=== PATIENT | male | born 1955 | race Caucasian/White ===

== ENCOUNTER 2019-10-14 08:20 | Outpatient (CLI) | payer MEDICARE, OTHER ==
[2019-10-15 14:40] LABS: #Basophils 0.1 thou/uL (0.0-0.2); #Eosinphils 0.1 thou/uL (0.0-0.7); #Lymphocytes 1.6 thou/uL (1.20-3.40); #Monocytes 0.3 thou/uL (0.11-0.59); #Neutrophils 1.3 thou/uL (1.40-6.50); %Basophils 1.6 % (0.0-1.0); %Lymphocytes 47.4 % (21.0-51.0); %Monocytes 9.9 % (0.0-10.0); Hemoglobin 16.7 g/dL (14.0-18.0); Mean Corpuscular HGB CONC 32.5 g/dL (32.0-36.0); Mean Corpuscular Hemoglobin 31.9 pg (27.0-31.0); Mean Corpuscular Volume 98.1 fL (78.0-98.0); Mean Platelet Volume 8.5 fL (7.4-10.4); Platelet Count 159 thou/uL (130-400); RBC Distribution Width 11.2 % (11.5-14.5); Red Blood Cell (RBC) Count 5.23 mill/uL (4.70-6.10); White Blood Cell (WBC) Count 3.5 thou/uL (4.8-10.8)
[2019-10-15 15:50] LABS: Anion Gap 13 mmol/L (10-20); BUN (Urea Nitrogen) 10 mg/dL (8.4-25.7); Calc. Creatinine Clearance 0 mL/min (70-130); Calcium 8.6 mg/dL (7.8-10.44); Carbon Dioxide 30 mmol/L (23-31); Chloride 101 mmol/L (98-107); Estimated GFR-MDRD 88; Glucose 84 mg/dL (80-115); Potassium 4.4 mmol/L (3.5-5.1); Sodium 140 mmol/L (136-145)
[2019-10-16 12:29] LABS: SARS-CoV-2 MS2 Positive; SARS-CoV-2 N Gene Negative; SARS-CoV-2 S Gene Negative; SARS-CoV-2 by NAA Not Detected (NotDetected); SARS-CoV-2 orf1ab Negative
== END 2019-10-14 08:21 | disposition home or self-care (01) ==
LOC: LABBT 08:20
PROVIDERS: ATTEND Urology
DX: Z01.812 Encounter for preprocedural laboratory examination (principal); Z20.828 Contact with and (suspected) exposure to other viral communicable diseases; N20.0 Calculus of kidney
CPT/HCPCS: 80048; 85025; 87086; U0003; 87635; 93005; 93010

== ENCOUNTER 2019-10-19 08:58 | Day surgery (SDC) | payer MEDICARE ==
[2019-10-14 10:29] VITALS: BMI 26.6
[2019-10-19] MEDS ORDERED: Levofloxacin 500 mg/D5W 100 ml Premix Bag ONE (09:45)
[2019-10-19] MEDS ORDERED: Ondansetron PF 4 MG/2 ML Vial ONE (10:08)
[2019-10-19] MEDS ORDERED: PROPOFOL 200 MG/20 ML VIAL ONE (10:08)
[2019-10-19] MEDS ORDERED: Lidocaine 1% PF 5 ML VIAL ONE (10:08)
[2019-10-19] MEDS ORDERED: EPHEDRINE 25 MG/5 ML SYRINGE ONE (10:08)
[2019-10-19] MEDS ORDERED: Ketorolac Tromethamine 30 MG/ML VIAL ONE ×2 (10:08→13:26)
[2019-10-19] MEDS ORDERED: Dexamethasone 20 MG/5 ML VIAL ONE (10:08)
[2019-10-19 11:50] LABS: Bacteria/HPF None Seen HPF (None Seen); Bilirubin Negative (Negative); Blood, Urine Negative (Negative); Clarity Clear (Clear); Glucose, Urine (Dipstick) Normal (Negative); Ketone, Urine Negative (Negative); Leukocyte Negative Leu/uL (Negative); Nitrite Negative (Negative); Protein, Urine (Dipstick) Negative (Neg-Trace); RBC/HPF 0-3 HPF (0-3); Specific Gravity, Urine 1.007 (1.002-1.036); Squamous Epithelial None Seen HPF (0-3); Urobilinogen Normal mg/dL (Less than 2); WBC/HPF 0-3 HPF (0-3)
[2019-10-19] MEDS ORDERED: Iothalamate Meglumine 60% 50 ML VIAL FS ONE (11:50)
[2019-10-19] MEDS ORDERED: Fentanyl 100 MCG/2 ML VIAL ONE (11:54)
--- NOTE | 2019-10-19 13:02 | RAD ---
EXAM: Retrograde IVP HISTORY: Right kidney stones COMPARISON: CT 10/04/2019 FINDINGS/IMPRESSION: Limited intraoperative fluoroscopic views of the retrograde IVP were submitted f or interpretation. There is a right-sided ureteral stent which appears in good position. The calcifications seen on CT are not obviously visualized. There is mild right hydronephrosis.
[2019-10-19] MEDS ORDERED: Oxybutynin 5 MG TAB ONE (13:26)
[2019-10-19] MEDS ORDERED: HYDROcodone/Acetaminophen 5/325 mg Tablet ONE (13:27)
--- NOTE | 2019-10-19 17:19 | OP ---
DATE OF PROCEDURE: 10/19/2019 POSTOPERATIVE DIAGNOSES: 1. Right renal stones. 2. Possible left ureteral stone. POSTOPERATIVE DIAGNOSIS: Right renal stones. PROCEDURES PERFORMED: 1. Left ureteroscopy with retrograde pyelogram. 2. Right ureteroscopy with laser lithotripsy. 3. Basket extraction of stone. 4. Retrograde pyelogram. 5. 6 x 26 double-J ureteral stent placement. 6. Intraoperative interpretation of radiologic imaging. ANESTHESIA: General. COMPLICATIONS: None. ESTIMATED BLOOD LOSS: None. SPECIMENS: Right renal stone fragments. DESCRIPTION OF PROCEDURE: After informed consent, the patient was taken to the operating room, transferred to the table on his own power. Anesthesia was established. A time-out was performed, showing the correct patient, site, and procedure. Preoperative antibiotics were administered. He was prepped and draped in the lithotomy position. The rigid ureteroscope was advanced through the urethra, noting normal course and caliber of the urethra into the bladder. The left ureteral orifice was cannulated with a wire and the scope passed alongside the wire into the distal ureter. No stone was seen at this point, and so the scope was passed into the mid to proximal ureter with identifying any stones or abnormalities. A retrograde pyelogram was performed, showing good filling of the proximal ureter and renal pelvis without filling defects. The scope was then withdrawn and a wire placed into the right ureter, which was passed up to the level of the right renal pelvis. On scientific writer imaging, the large stone and smaller stone are both easily identified. I then passed access sheath over the wire into the proximal right ureter under fluoroscopic guidance. A retrograde pyelogram was performed through this, showing good filling of the proximal ureter and renal pelvis without filling defect. The flexible ureteroscope was then passed through this into the renal pelvis. These stones were treated with the 273 micron laser fiber into small pieces. A 1.9 cm Nitinol basket was used to retrieve all clinically significant stone fragments. The renal pelvis was then re-examined, noting no clinically significant stone fragments. The pelvis was filled with contrast and then the scope and access sheath withdrawn, leaving the wire in place. A 6 x 26 double-J ureteral stent was passed over the wire with a curl in the kidney and curl in the bladder under fluoroscopic guidance. The patient was then awoken from anesthesia, transferred back to his hospital bed, and taken to PACU in stable condition, where he will be discharged home upon recovery. Job ID: [id number]
== END 2019-10-19 14:38 | disposition home or self-care (01) ==
LOC: SDC 08:58
PROVIDERS: ATTEND Urology
PROC: 0TC38ZZ Extirpation of Matter from Right Kidney Pelvis, Via Natural or Artificial Opening Endoscopic (ICD-10-PCS; principal; 2019-10-19)
PROC: 0T768DZ Dilation of Right Ureter with Intraluminal Device, Via Natural or Artificial Opening Endoscopic (ICD-10-PCS; 2019-10-19)
DX: N20.1 Calculus of ureter (principal); Z79.899 Other long term (current) drug therapy; Z88.0 Allergy status to penicillin
CPT/HCPCS: 74420; 81001; 82365; 88300; J1100; J1885; J1956; J2405; J2704; J3010

== ENCOUNTER 2019-11-01 09:57 | Emergency (ER) | payer MEDICARE ==
[2019-11-01 10:34] LABS: #Eosinphils 0.1 thou/uL (0.0-0.7); #Lymphocytes 1.1 thou/uL (1.20-3.40); #Monocytes 0.4 thou/uL (0.11-0.59); #Neutrophils 1.9 thou/uL (1.40-6.50); %Basophils 0.7 % (0.0-1.0); %Eosinophils 2.9 % (0.0-10.0); %Lymphocytes 30.4 % (21.0-51.0); %Monocytes 10.4 % (0.0-10.0); %Neutrophils 55.6 % (42.0-75.0); Mean Corpuscular HGB CONC 33.7 g/dL (32.0-36.0); Mean Corpuscular Hemoglobin 32.3 pg (27.0-31.0); Mean Corpuscular Volume 96.1 fL (78.0-98.0); Platelet Count 153 thou/uL (130-400); RBC Distribution Width 11.1 % (11.5-14.5); Red Blood Cell (RBC) Count 4.34 mill/uL (4.70-6.10); White Blood Cell (WBC) Count 3.5 thou/uL (4.8-10.8)
[2019-11-01 11:02] LABS: ALT (SGPT) 10 U/L (8-55); AST (SGOT) 13 U/L (5-34); Albumin 3.3 g/dL (3.4-4.8); Alkaline Phosphatase 49 U/L (40-110); Anion Gap 11 mmol/L (10-20); BUN (Urea Nitrogen) 14 mg/dL (8.4-25.7); Bilirubin, Total 0.3 mg/dL (0.2-1.2); Calc. Creatinine Clearance 0 mL/min (70-130); Calcium 7.4 mg/dL (7.8-10.44); Carbon Dioxide 25 mmol/L (23-31); Chloride 108 mmol/L (98-107); Estimated GFR-MDRD Greater than 90; Globulin 2.3 g/dL (2.4-3.5); Glucose 87 mg/dL (80-115); Potassium 4.1 mmol/L (3.5-5.1); Protein, Total 5.6 g/dL (5.8-8.1); Sodium 140 mmol/L (136-145)
== END 2019-11-01 11:35 | disposition home or self-care (01) ==
LOC: ERS 09:57
DX: R55 Syncope and collapse (principal)
CPT/HCPCS: 36415; 80053; 83605; 84484; 85025; 93005; 96360

== ENCOUNTER 2020-01-14 14:26 | Outpatient (CLI) | payer MEDICARE ==
[~2020-01-14 14:26] MED LIST: Iopamidol-370 76% 500 ML 1 ML ONE
--- NOTE | 2020-01-14 16:11 | CT ---
CT NECK WITH AND WITHOUT CONTRAST: (Parathyroid protocol) DATE: 01/14/2020 HISTORY: [id number] with hyperparathyroidism. TECHNIQUE: Precontrast scan, 25 seconds postcontrast scan, and 65 second postcontrast scan, from several centime ters inferior to the renate to the skull base. Coronal and sagittal reconstructions. FINDINGS: Close to the right tracheoesophageal groove, abutting the posterior surface of the midpole of the rig ht lobe of the thyroid gland, and abutting the medial surface of the right common carotid artery, at approximately the C7-T1 level, there is a small enhancing piece of tissue measuring approximately 0.9 x 0.7 x 0.4 cm. It does not appear to have intrinsic iodine. This could represent a parathyroid adenoma. (Axial images 49 of 124, series 2; 49 of 124, series 3; 49 of 124, series 7; coronal image 5 0 09/10/2000 series 5 and 55 of 96 series 9; sagittal image 44 of 81 series 10 and 43 of 81 series 6). Directly superior to it, there is another similarly shaped enhancing nodule, but it does appear t o have intrinsic iodine, and that is probably thyroid tissue. There is asymmetrical enlargement of the right side of the lingual tonsil encroaching upon the right vallecula, nonspecific. IMPRESSION: Small enhancing nodule near right tracheoesophageal groove posterior to right lobe of thyroid gland i s a intermediate to good candidate for parathyroid adenoma. Recommend correlation with nuclear medicine sestamibi SPECT
== END 2020-01-14 14:27 | disposition home or self-care (01) ==
LOC: BICCT 14:26
PROVIDERS: ATTEND Specialist
DX: E21.3 Hyperparathyroidism, unspecified (principal); E04.1 Nontoxic single thyroid nodule
CPT/HCPCS: 70492; 82565; Q9967

== ENCOUNTER 2020-01-28 07:43 | Outpatient (CLI) | payer MEDICARE ==
[2020-01-28 12:01] LABS: Hemoglobin 16.4 g/dL (14.0-18.0)
[2020-01-28 12:02] LABS: Anion Gap 11 mmol/L (10-20); BUN (Urea Nitrogen) 10 mg/dL (8.4-25.7); Calc. Creatinine Clearance 0 mL/min (70-130); Calcium 9.2 mg/dL (7.8-10.44); Carbon Dioxide 32 mmol/L (23-31); Chloride 100 mmol/L (98-107); Glucose 111 mg/dL (80-115); Potassium 4.3 mmol/L (3.5-5.1); Sodium 139 mmol/L (136-145)
[2020-01-28 21:35] LABS: SARS-CoV-2 MS2 Positive; SARS-CoV-2 N Gene Negative; SARS-CoV-2 S Gene Negative; SARS-CoV-2 by NAA Not Detected (NotDetected); SARS-CoV-2 orf1ab Negative
== END 2020-01-28 07:44 | disposition home or self-care (01) ==
LOC: LABBT 07:43
PROVIDERS: ATTEND Specialist
DX: Z01.818 Encounter for other preprocedural examination (principal); Z20.828 Contact with and (suspected) exposure to other viral communicable diseases; E21.3 Hyperparathyroidism, unspecified; D35.1 Benign neoplasm of parathyroid gland; E21.5 Disorder of parathyroid gland, unspecified
CPT/HCPCS: 80048; 85014; 85018; U0003; 87635; 93005; 93010

== ENCOUNTER 2020-02-02 06:14 | Day surgery (SDC) | payer MEDICARE ==
[2020-02-01 11:10] VITALS: BMI 25.7
[2020-02-02] MEDS ORDERED: Lidocaine 1% w/Epinephrine 1:100K 20 ML VIAL ONE (08:47)
[2020-02-02] MEDS ORDERED: Fentanyl 100 MCG/2 ML VIAL ONE ×3 (08:53→11:32)
[2020-02-02] MEDS ORDERED: Famotidine/PF 20 mg/2ml Vial ONE (08:53)
[2020-02-02] MEDS ORDERED: ePHEDrine 50 MG/ML VIAL ONE (09:57)
[2020-02-02] MEDS ORDERED: PROPOFOL 200 MG/20 ML VIAL ONE (09:57)
[2020-02-02] MEDS ORDERED: PHENYLEPHRINE-NS 100 MCG/ML 10 ML SYRINGE ONE (09:57)
[2020-02-02] MEDS ORDERED: Succinylcholine 200 MG/10 ml SYRINGE FS ONE (09:57)
[2020-02-02] MEDS ORDERED: Ondansetron PF 4 MG/2 ML Vial ONE (09:57)
[2020-02-02] MEDS ORDERED: Lidocaine 1% PF 5 ML VIAL ONE (09:57)
[2020-02-02] MEDS ORDERED: Dexamethasone 20 MG/5 ML VIAL ONE (09:57)
[2020-02-02] MEDS ORDERED: Metoclopramide HCl 10 MG/2 ML VIAL ONE (09:58)
--- NOTE | 2020-02-02 12:48 | OP ---
DATE OF PROCEDURE: 02/02/2020 PREOPERATIVE DIAGNOSIS: Primary hyperparathyroidism. POSTOPERATIVE DIAGNOSIS: Primary hyperparathyroidism. PROCEDURE PERFORMED: Right neck exploration with parathyroidectomy using laryngeal nerve monitoring for 1-1/2 hours. PROCEDURE IN DETAIL: After consent was obtained, the patient was identified, brought to the operating room, placed on the operating room table in supine position. General endotracheal anesthesia was obtained with laryngeal nerve monitoring endotracheal tube and it was documented to be positioned right and functioning. We then proceeded with prepping and draping the patient and positioned him for surgery. The area of the lower cervical area was infiltrated with 1% lidocaine and 1:100,000 epinephrine and we made an incision in the natural skin crease and carried the incision down through the skin, subcutaneous tissues, and platysma. Subplatysmal flaps were elevated and the strap muscles were divided in the midline. We dissected along the capsule of the right thyroid gland and ultimately we were able to mobilize the gland medially as we dissected along in the tracheoesophageal groove. All the contents in this area were removed and sent for histologic evaluation. The extensive inspection of the recurrent laryngeal nerve in the region failed to reveal any obvious enlarged parathyroid adenoma. At the completion of procedure, specimens were sent for histologic evaluation. Hemostasis was obtained. The wound was closed in layers. Voice was strong after the endotracheal tube was removed. The patient was awakened and taken to recovery room prior to discharge home. Job ID: [id number]
== END 2020-02-02 13:13 | disposition home or self-care (01) ==
LOC: SDC 06:14
PROVIDERS: ATTEND Specialist
PROC: 0GBR0ZZ Excision of Parathyroid Gland, Open Approach (ICD-10-PCS; principal; 2020-02-02)
DX: E21.0 Primary hyperparathyroidism (principal); D35.1 Benign neoplasm of parathyroid gland; M10.9 Gout, unspecified; Z79.899 Other long term (current) drug therapy; Z88.0 Allergy status to penicillin
CPT/HCPCS: 88305; J1100; J2405; J2704; J2765; J3010; J3490; S0028

== ENCOUNTER 2020-12-15 10:27 | Outpatient (CLI) | payer MEDICARE | END 2020-12-15 10:28 | disposition home or self-care (01) | LOC: BICULT 10:27 | PROVIDERS: ATTEND Urology | DX: N20.0 Calculus of kidney (principal) | CPT/HCPCS: 76770 ==